=== PATIENT | female | born 1930 | race Caucasian/White ===

== ENCOUNTER 2016-08-07 14:29 | Inpatient (IN) | payer OTHER, MEDICARE ==
[~2016-08-07] VITALS: Ht 154.9 cm; Wt 67.1 kg
[~2016-08-07 14:29] MED LIST: AMANTADINE100 M1 PO; ANALGESIC325 MG PO; ARTANE2 MG PO; ASPIR 8181 M1 PO; B COMPLETE1 EACH; B COMPLETE1 EACH PO; CALCIUM600 MG PO; CENTRUM SILVER1 EACH PO; CLARITIN10 MG PO; CO Q-10100 MG; COZAAR50 MG PO; FISH OIL 1,0001 EA10 PO; FISH OIL 1,0001 EAC7; FLAX OIL1000 MG PO; FLONASE16 G1 BOTH NARES; GLUCOSAMINE &1 EAC1; GLUCOSAMINE H1500 MG PO; HYDROCHLOROTHIA25 MG PO; LASIX20 MG PO; LIPITOR5 MG PO; MICRO-K10 ME1 PO; MIRAPEX0.125 MG PO; NORVASC10 MG PO; OMEPRAZOLE20 MG PO; PAXIL10 MG PO; PHENERGAN25 MG PO; POTASSIUM CHLO20 ME2 PO; PRESERVISION T1 EACH PO; TYLENOL 8 HOUR650 MG PO; VESICARE5 MG; VITAMIN D31000 UNIT PO; ZOLOFT50 MG PO
[2016-08-07 15:53] LABS: HEMATOCRIT 36.2 % (36.0-46.0); MCH 31.1 PG (29.0-34.0); MCHC 33.7 G/DL (30.0-36.0); MCV 92.3 FL (83-99); PLATELET COUNT 218 K/uL (156-360); RBC DIS.WIDTH-CV 12.1 % (11.8-14.6); RBC DIS.WIDTH-SD 40.6 % (39-53); RED BLOOD COUNT 3.92 M/uL (3.80-5.20); WHITE BLOOD COUNT 9.3 K/uL (4.1-10.2)
[2016-08-07 16:00] LABS: CHLORIDE 98 mEq/L (99-109); POTASSIUM 5.2 mEq/L (3.7-5.4); SODIUM 132 mEq/L (136-147)
[2016-08-07 16:02] LABS: GLUCOSE 151 mg/dL (70-99)
[2016-08-07 16:03] LABS: ANION GAP 10 MEQ/L (2-14)
[2016-08-07 16:06] LABS: GFR ESTIMATE (CALCULATED) 41 mL/min/
[2016-08-07 16:07] LABS: UREA NITROGEN (BUN) 27 mg/dL (9-23)
[2016-08-07 16:13] LABS: TROP-I INTERPRETATION POSITIVE
[2016-08-07 16:37] LABS: TROPONIN-I 0.81 ng/mL (0.0-0.30)
[2016-08-07 16:38] LABS: BILIRUBIN NEGATIVE; BLOOD NEGATIVE; COLOR YELLOW ((YELLOW)); GLUCOSE (STRIP) NEGATIVE; KETONES NEGATIVE; LEUKOCYTES NEGATIVE; NITRITE NEGATIVE; PROTEIN (STRIP) 30; SPECIFIC GRAVITY 1.017 (1.000-1.030); UROBILINOGEN 0.2 MG/DL (0.2-1.0)
[2016-08-07 16:47] LABS: ADD MIUA? NO
[2016-08-07] MEDS ORDERED: LOSARTAN-HCTZ1 EAC1 PO (17:24)
[2016-08-07] MEDS ORDERED: CALCIUM600 M1 PO (17:26)
[2016-08-07] MEDS ORDERED: CENTRUM SILVER1 EAC3 PO (17:26)
[2016-08-07] MEDS ORDERED: GLUCOSAMINE CH1 EAC1 PO (17:28)
[2016-08-07] MEDS ORDERED: LORAZEPAM0.5 MG PO (17:30)
[2016-08-07] MEDS ORDERED: GENTEAL TEARS 015 M1 BOTH EYES (17:31)
[2016-08-07 19:43] LABS: D-DIMER ELISA > 4.00 mg/L FEU (< 0.57)
[2016-08-07 19:45] VITALS: BP 132/99
[2016-08-07 23:15] VITALS: BP 82/54
[2016-08-08] VITALS (7 sets, daily range): BP systolic 104–142; BP diastolic 57–85
[2016-08-08 00:47] LABS: TROPONIN-I 1.34 ng/mL (0.0-0.30)
[2016-08-08 00:48] LABS: TROP-I INTERPRETATION POSITIVE
[2016-08-08 05:22] LABS: HEMATOCRIT 34.9 % (36.0-46.0); MCH 31.6 PG (29.0-34.0); MCHC 34.1 G/DL (30.0-36.0); MCV 92.8 FL (83-99); MEAN PLAT.VOLUME 10.5 uM^3 (9.5-12.4); PLATELET COUNT 205 K/uL (156-360); RBC DIS.WIDTH-CV 12.3 % (11.8-14.6); RED BLOOD COUNT 3.76 M/uL (3.80-5.20); WHITE BLOOD COUNT 9.4 K/uL (4.1-10.2)
[2016-08-08 05:51] LABS: ALKALINE PHOSPHATASE 76 IU/L (3-129); ANION GAP 11 MEQ/L (2-14); CHLORIDE 99 MEQ/L (99-109); GFR ESTIMATE (CALCULATED) 38 mL/min/; GLUCOSE 123 mg/dL (70-99); POTASSIUM 4.5 MEQ/L (3.7-5.4); SAMPLE HEMOLYSIS CHECK 0; SAMPLE ICTERIC CHECK 0; SAMPLE LIPEMIA CHECK 0; SODIUM 131 MEQ/L (136-147); TOTAL BILIRUBIN 0.3 MG/DL (0.0-1.0); UREA NITROGEN (BUN) 32 mg/dL (9-23)
[2016-08-08 06:26] LABS: TROP-I INTERPRETATION POSITIVE; TROPONIN-I 1.13 ng/mL (0.0-0.30)
[2016-08-09 03:20] VITALS: BP 158/84
[2016-08-09 07:06] VITALS: BP 140/82
[2016-08-09 10:15] LABS: HEMATOCRIT 34.9 % (36.0-46.0); MCH 30.9 PG (29.0-34.0); MCHC 33.2 G/DL (30.0-36.0); MCV 93.1 FL (83-99); PLATELET COUNT 208 K/uL (156-360); RBC DIS.WIDTH-SD 40.7 % (39-53); RED BLOOD COUNT 3.75 M/uL (3.80-5.20); WHITE BLOOD COUNT 8.4 K/uL (4.1-10.2)
[2016-08-09 10:35] LABS: ANION GAP 9 MEQ/L (2-14); CHLORIDE 97 MEQ/L (99-109); GFR ESTIMATE (CALCULATED) > 59 mL/min/; GLUCOSE 152 mg/dL (70-99); POTASSIUM 3.7 MEQ/L (3.7-5.4); SAMPLE HEMOLYSIS CHECK 0; SAMPLE ICTERIC CHECK 0; SAMPLE LIPEMIA CHECK 0; SODIUM 131 MEQ/L (136-147); UREA NITROGEN (BUN) 20 mg/dL (9-23)
[2016-08-09 11:15] VITALS: BP 110/59
[2016-08-09 15:20] VITALS: BP 123/66
[2016-08-09 19:00] VITALS: BP 136/78
[2016-08-09 23:00] VITALS: BP 146/67
[2016-08-10 03:00] VITALS: BP 116/60
[2016-08-10 08:40] VITALS: BP 125/94
[2016-08-10] MEDS ORDERED: ELIQUIS5 MG PO ×2 (10:48→10:49)
[2016-08-10 11:02] VITALS: BP 112/59
== END 2016-08-10 13:30 | disposition home health service (06) | DRG 176 ==
LOC: EME → EDBD 14:29 → EME 14:29 → EDOF 18:13 → 4EAST 18:13
PROVIDERS: Emergency Medicine; Hospitalist; Physician Assistant
DX: I26.99 Other pulmonary embolism without acute cor pulmonale (principal); E87.1 Hypo-osmolality and hyponatremia; E87.2 Acidosis; G20 Parkinson's disease; I10 Essential (primary) hypertension; E78.5 Hyperlipidemia, unspecified; I25.10 Atherosclerotic heart disease of native coronary artery without angina pectoris; H35.30 Unspecified macular degeneration; G62.9 Polyneuropathy, unspecified; I25.2 Old myocardial infarction; K21.9 Gastro-esophageal reflux disease without esophagitis; I95.9 Hypotension, unspecified; R74.8 Abnormal levels of other serum enzymes; I27.2 Other secondary pulmonary hypertension; I08.1 Rheumatic disorders of both mitral and tricuspid valves
CPT/HCPCS: 70450; 71020; 71275; 80048; 80053; 81003; 83605; 83880; 84484; 85027; 85379; 85730; 87086; 93005; 93306; 97530 GP; 99281; 99285; G9033; J1650